=== PATIENT | female | born 1985 | race Caucasian/White ===

== ENCOUNTER 2022-09-13 10:28 | Emergency (ER) | payer OTHER ==
[~2022-09-13] VITALS: Ht 162.6 cm; Wt 74.4 kg
[2022-09-13 10:28] VITALS: BP_SYST 115
--- NOTE | 2022-09-13 10:35 | NUR ---
Patient triaged and placed in waiting room. VSS and patient appears in no acute distress at this time. Accompanied by FRIEND, awaiting available bed, and MD notified of need for MSE.
--- NOTE | 2022-09-13 12:19 | NUR ---
DR BARKER EVALUATING PT IN TRIAGE ROOM.
--- NOTE | 2022-09-13 13:16 | NUR ---
Patient given written and verbal discharge instructions and verbalizes understanding. ER MD discussed with patient the results and treatment provided. Patient in stable condition. ID arm band removed. Rx of NONE given. Patient educated on pain management and to follow up with PMD. Pain Scale 0/10. Opportunity for questions provided and answered. Medication side effect fact sheet provided.
== END 2022-09-13 13:16 | disposition home or self-care (01) ==
LOC: SED 10:28
DX: G62.9 Polyneuropathy, unspecified (principal); R20.2 Paresthesia of skin; Z79.899 Other long term (current) drug therapy
CPT/HCPCS: 99281